=== PATIENT | female | born 1980 | race Caucasian/White ===

== ENCOUNTER 2017-08-30 22:49 | Emergency (ER) | payer MEDICAID ==
[2017-08-30] MEDS ORDERED: fentaNYL 100 MCG/2 ML SDV IM ONE (23:15)
--- NOTE | 2017-08-30 23:17 | EDM.PDOC ---
ED HPI GENERAL MEDICAL PROBLEM - General Chief Complaint: Lower Extremity Injury/Pain Stated Complaint: RIGHT ANKLE INJURY Time Seen by Provider: 08/30/17 23:11 Source of Information: Reports: Patient, Family, RN Notes Reviewed History Limitations: Reports: No Limitations - History of Present Illness INITIAL COMMENTS - FREE TEXT/NARRATIVE: 37-year-old female presents to the emergency department today following trauma at home where she was bucked off a horse, she landed on her feet but believes the horse may have rolled over on her right ankle, she is experiencing pain cannot bear weight no other injuries - Related Data Allergies Allergy/AdvReac Type Severity Reaction Status Date / Time No Known Allergies Allergy Verified 08/30/17 23:05 Home Meds: Home Meds Citalopram Hydrobromide [Celexa] 08/30/17 [History] Past Medical History Psychiatric History: Reports: Depression - Past Surgical History Female Surgical History: Reports: Tubal Ligation Dermatological Surgical History: Reports: Other (See Below) Social & Family History - Tobacco Use Smoking Status *Q: Current Every Day Smoker Years of Tobacco use: 15 Packs/Tins Daily: 1 Review of Systems - Review of Systems Review Of Systems: See Below Constitutional: Reports: No Symptoms Musculoskeletal: Reports: Joint Pain (Right ankle pain) Skin: Reports: No Symptoms Neurological: Reports: No Symptoms ED EXAM, GENERAL - Physical Exam Exam: See Below Free Text/Narrative:: Examination of the right ankle I do appreciate edema on both sides of the ankle she is tender to the slightest movement of the ankle difficult to do an exam pedal pulse is +2. Range of motion of all digits there is no tenderness at the knee Exam Limited By: No Limitations General Appearance: Alert, WD/WN, No Apparent Distress Respiratory/Chest: No Respiratory Distress ED TRAUMA EXTREMITY PROCEDURES - Splinting Right Lower Extremity Splint Site: Right lower extremity Pre-Procedure NV Status: Normal Post-Procedure NV Status: Normal Splint Material: Fiberglass Splint Design: Posterior Applied & Form Fitted By: Provider Provider Post-Splint Application NV Check: NV Status Normal, Good Position Complications: No Course - Vital Signs Last Recorded V/S: Last Vital Signs Temp 98.3 F 08/30/17 23:12 Pulse 63 08/30/17 23:12 Resp 16 08/30/17 23:12 BP 109/77 08/30/17 23:25 Pulse Ox 100 08/30/17 23:12 - Orders/Labs/Meds Orders: Active Orders 24 hr Category Date Time Status Ankle Min 3V Rt [CR] Stat Exams 08/31/17 00:01 Taken Tibia Fibula Rt [CR] Stat Exams 08/31/17 01:44 Taken Meds: Medications Discontinued Medications Generic Name Dose Route Start Last Admin Trade Name Freq PRN Reason Stop Dose Admin Fentanyl 50 mcg 08/30/17 23:15 08/30/17 23:22 Sublimaze IM 08/30/17 23:16 50 mcg ONETIME ONE Administration Departure - Departure Time of Disposition: 02:05 Disposition: Home, Self-Care 01 Condition: Good Clinical Impression: Fracture of medial malleolus of right tibia Qualifiers: Encounter type: initial encounter Fracture type: closed Fracture alignment: displaced Qualified Code(s): S82.51XA - Displaced fracture of medial malleolus of right tibia, initial encounter for closed fracture - Discharge Information Referrals: PCP,None [Primary Care Provider] - Forms: ED Department Discharge Additional Instructions: Use hydrocodone as needed for pain control, the orthopedic clinic will contact you this morning please do not eat as there is a possibility you may go to surgery today until after you've discussed your care with the orthopedic clinic - My Orders Last 24 Hours: My Active Orders 08/31/17 00:01 Ankle Min 3V Rt [CR] Stat 08/31/17 01:44 Tibia Fibula Rt [CR] Stat - Assessment/Plan Last 24 Hours: My Active Orders 08/31/17 00:01 Ankle Min 3V Rt [CR] Stat 08/31/17 01:44 Tibia Fibula Rt [CR] Stat Plan: Assessment Acuity = acute Site and laterality = fracture medial malleolus of the distal tibia closed Etiology = secondary to trauma with a hoarse Manifestations = none Location of injury = Home Lab values = x-rays describes the fracture above official read radiology is pending Plan She is placed in a posterior splint discussed case with orthopedics on-call at [facility] orthopedic clinic will call in the morning and schedule surgery time Thursday or Thursday, hydrocodone 5/325 one tab by mouth 3 times a day when necessary total #10 This note was dictated using [employer] voice recognition software please call with any questions on syntax or grammar.
--- NOTE | 2017-08-31 09:08 | CR ---
Tibia Fibula Rt INDICATION: trauma pain COMPARISON: None FINDINGS: 4 views. Medial malleolar fracture. No other fractures seen.
--- NOTE | 2017-08-31 09:09 | CR ---
Ankle Min 3V Rt INDICATION: Twisting injury pain COMPARISON: None FINDINGS: 3 views. Medial malleolar fracture with mild displacement of distal fracture fragment. No other fractures seen.
== END 2017-08-31 02:27 | disposition home or self-care (01) ==
LOC: JP.ED 22:49
DX: S82.51XA Displaced fracture of medial malleolus of right tibia, initial encounter for closed fracture (principal); F17.210 Nicotine dependence, cigarettes, uncomplicated; W55.12XA Struck by horse, initial encounter
CPT/HCPCS: 29515; 73590; 73610; 96372; 99284; J3010